=== PATIENT | female | born 1960 | race Caucasian/White ===

== ENCOUNTER 2024-01-25 17:25 | Observation (INO) ==
--- NOTE | 2024-01-25 17:30 | ED Triage Note ---
Date of Service January 25, 2024 Provider in Triage Author: Radha Tejeda History of Present Illness This patient was briefly evaluated while in triage. An abbreviated physical exam was performed. This patient is a 63-year-old Female who presents to the ED for evaluation of dizziness and tingling in her left arm. She states symptoms started around 2.5- 3.5 hours ago. She states it feels like things are spinning. Her states that he found her on the floor when he got home from work. She has been nauseous. Denies a fall. Physical Exam GENERAL: Unwell appearing, laying back in wheelchair with her eyes closed. HEENT: Pupils equal. Nystagmus noted. HEART: Regular rate and rhythm. LUNGS: Clear to auscultation. No accessory muscle use. NEURO: Alert and oriented. Initial orders for labs and / or imaging were placed and patient was placed in the waiting area until a bed is available. Please see further documentation for the full ED course.
--- NOTE | 2024-01-25 17:37 | Emergency Department Note ---
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 The patient does have nystagmus on exam. No obvious focal deficits on exam. IV blood work and CT head CT angiography of the head and neck Compazine Benadryl IV IV fluids were ordered. Upon reassessment the patient was still having symptoms of the patient was ordered Phenergan and p.o. meclizine in addition to IV fluids. The patient was noted to have 2 small aneurysms of the ICAs. I did state the patient is to like incidental and likely not the cause of the patient's symptoms. Upon subsequent reassessment the patient was feeling improved and no longer had any nystagmus. I did ask nursing to try and ambulate the patient. I did speak with on-call neurology stated the patient was feeling well enough did not feel as strongly about an MRI but if the patient still had persistent symptoms recommended inpatient treatment and MRI brain. The patient had a recurrence of her nystagmus and vertigo. I did speak to the on-call hospital service Dr. Gonzalez and MRI brain was ordered. Patient was admitted to the medicine service. Discussion w/ other healthcare providers: Dr. Gonzalez inpatient medicine service Dr. Spangler neurology Prior /Outside records reviewed: None Differential diagnosis: Benign positional vertigo, dehydration, hypovolemia, anemia, infection, hypoglycemia, electrolyte abnormalities, arrhythmia, tox among others were considered. Diagnostics, as interpreted by me: ECG: Normal sinus rhythm, rate of 72, normal intervals, normal axis T wave version lead III no ST elevations. Cardiac monitoring: An order was placed for continuous cardiac monitoring. The monitor shows a rate of 75 with sinus rhythm. Patient was placed on pulse oximetry Medical decision rules: None Imaging studies: I informally interpreted the patient's CT head does not show obvious ICH with formal report to follow. HPI: Patient presents due to concern for vertigo and the spins which began around 2:00. Patient states that it was fairly sudden. The patient denies any recent changes in elevation or underwater activities. She denies any hearing loss tinnitus or ear pain. Patient denies any neck pain but does have severe global headache. No falls or trauma the patient denies taking any blood thinning medications or aspirin. Patient did not take anything prior to arrival. The patient does feel as though her eyes are spinning. Patient was found by her on the floor but the patient denies falling but because of her spinning she laid down on the floor of the bathroom. Patient denies any chest pains or shortness of breath. She has had nausea and associated vomiting. Patient denies any history of stroke or mini stroke. Patient denies any fevers or chills no numbness tingling or focal weakness. Patient denies any slurred speech or facial droop. PAST MEDICAL HISTORY: See Below PAST SURGICAL HISTORY: See Below SOCIAL HISTORY: See Below HOME MEDICATIONS: See Below ALLERGIES: See Below VITALS: See Below PHYSICAL EXAMINATION: GENERAL: NAD, non-toxic. EYE EXAM: Normal conjunctiva. PERRL, no anisocoria and EOM's grossly intact w/o pain. Rightward beating nystagmus noted bilaterally. No obvious vertical or generational nystagmus. OROPHARYNX: Moist mucus membranes, grossly normal dentition. NECK: Trachea midline, no stridor. Supple, no nuchal rigidity, no adenopathy, non-tender. No signs of meningismus. FROM of the neck with good chin to chest and neck extension. No carotid bruits appreciated. LUNGS: Clear to auscultation. Normal chest wall mechanics. HEART: NSR, no MRG. ABDOMEN: Abdomen soft, non-tender, no masses, no rebound or guarding. BACK: No CVA TTP. SKIN: No rashes and no bruising. UPPER EXTREMITIES: Upper extremities are grossly normal. LOWER EXTREMITIES: Grossly normal, no edema. NEURO EXAM: A&O x3, cranial nerves II-XII grossly intact, normal speech, moves all 4 extremities. Good [id number], no sensory deficits. Past Med/Surg History Medical History No known health problems Surgical History S/P cataract surgery (2014) b/l Family History Mother Breast cancer, Onset Age: 41 Father Cancer Brother No problems noted. Sister No problems noted. Sister No problems noted. 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 Beliefs That Will Affect Care: None marital status: Current Living Situation: Spouse current occupational status: employed current occupation: [employer] How many Children do You have: 2 Other Information That Helps Us Care for You: No Feels Safe at Home: Yes Safety Concerns: Feels Safe At This Time Diet: regular Diet Comment: regular caffeine: Yes during the past year weight has: remained stable Dental Care, Regularly: Yes Physical Activity Frequency: Daily Seatbelt Use: always Sunscreen Use: Yes Assistive Devices: None Allergies Allergies Allergy/AdvReac Type Severity Reaction Status Date / Time No Known Allergies Allergy Unverified 01/25/24 22:54 Home Meds Home Medications Medication Instructions Recorded Confirmed multivitamin 1 tab PO DAILY 01/25/24 01/25/24 Previous Rx's Medication Instructions Recorded valacyclovir 1 gram tablet 1,000 mg PO BID PRN cold sores 3 01/14/23 days #30 tabs Results & Data (ED) Vital Signs Vital Signs - 24 hr 01/25/24 17:27 01/25/24 17:34 01/25/24 17:35 Temperature 36.6 C Temperature Source Temporal Artery Scan Pulse Rate 67 74 78 Pulse Rate [Apical] Respiratory Rate 20 27 H Respiratory Depth Normal Blood Pressure 136/82 Blood Pressure [Right Arm] Blood Pressure Mean 100 Blood Pressure Mean [Right Arm] Blood Pressure Position Sitting Pulse Oximetry 100 Oxygen Delivery Method Room Air Sepsis Recent Fever Within 48 Hours No Sepsis New/Unexplained Change in Mental Status No Sepsis Action Taken by Nursing No Action Required 01/25/24 17:37 01/25/24 17:37 01/25/24 18:00 Temperature Temperature Source Pulse Rate 81 65 Pulse Rate [Apical] Respiratory Rate 27 H 16 Respiratory Depth Blood Pressure 154/69 H Blood Pressure [Right Arm] Blood Pressure Mean 114 Blood Pressure Mean [Right Arm] Blood Pressure Position Pulse Oximetry Oxygen Delivery Method Sepsis Recent Fever Within 48 Hours Sepsis New/Unexplained Change in Mental Status Sepsis Action Taken by Nursing 01/25/24 18:15 01/25/24 18:31 01/25/24 18:31 Temperature Temperature Source Pulse Rate 78 Pulse Rate [Apical] 73 Respiratory Rate 16 16 Respiratory Depth Blood Pressure 140/82 Blood Pressure [Right Arm] 154/69 H Blood Pressure Mean 90 Blood Pressure Mean [Right Arm] 97 Blood Pressure Position Pulse Oximetry 97 Oxygen Delivery Method Room Air Sepsis Recent Fever Within 48 Hours Sepsis New/Unexplained Change in Mental Status Sepsis Action Taken by Nursing 01/25/24 19:00 01/25/24 20:00 01/25/24 21:00 Temperature Temperature Source Pulse Rate 78 86 83 Pulse Rate [Apical] Respiratory Rate 18 12 19 Respiratory Depth Blood Pressure Blood Pressure [Right Arm] Blood Pressure Mean Blood Pressure Mean [Right Arm] Blood Pressure Position Pulse Oximetry Oxygen Delivery Method Sepsis Recent Fever Within 48 Hours Sepsis New/Unexplained Change in Mental Status Sepsis Action Taken by Nursing 01/25/24 21:35 Temperature Temperature Source Pulse Rate 89 Pulse Rate [Apical] Respiratory Rate Respiratory Depth Blood Pressure Blood Pressure [Right Arm] Blood Pressure Mean Blood Pressure Mean [Right Arm] Blood Pressure Position Pulse Oximetry Oxygen Delivery Method Sepsis Recent Fever Within 48 Hours Sepsis New/Unexplained Change in Mental Status Sepsis Action Taken by [facility] Medications Current Medication List: was personally reviewed by me Laboratory Data Attestation: I reviewed the patient's lab results. 01/26/24 06:17 01/26/24 06:17 Lab Results 01/25/24 01/25/24 01/25/24 Range/Units 17:42 18:00 18:45 WBC 11.12 H (4.8-10.8) K/ul RBC 4.95 (4.20-5.40) M/uL Hgb 14.0 (12.0-16.0) g/dl POC Hgb 15.3 (12.0-16.0) g/dl Hct 41.8 (37.0-47.0) % POC Hct 45 (37-47) % MCV 84.4 (80.0-100.0) fL MCH 28.3 (25.0-34.0) pg MCHC 33.5 (32.0-36.0) g/dL RDW Std Deviation 39.5 (36.4-46.3) fL RDW Coeff of Alannah 12.9 (11.5-14.5) % Plt Count 155 (130-400) K/uL MPV 11.0 (9.4-12.4) fL Immature Gran % (Auto) 0.4 % Neut % (Auto) 86.9 % Lymph % (Auto) 8.6 % [place]pin % (Auto) 3.7 % Eos % (Auto) 0.2 % Baso % (Auto) 0.2 % Neut # (Auto) 9.66 H (1.40-6.50) K/uL Lymph # (Auto) 0.96 L (1.20-3.40) K/uL [place] # (Auto) 0.41 (0.11-0.59) K/uL Eos # (Auto) 0.02 (0.00-0.50) K/uL Baso # (Auto) 0.02 (0.00-0.20) K/uL Immature Gran # (Auto) 0.05 (0.01-0.20) K/uL PT 11.4 (9.0-12.0) Seconds INR 1.1 (0.9-1.1) APTT 27 (21-31) Seconds PTT Ratio 1.0 POC Sodium 140 (135-144) mmol/L Sodium 135 L (136-145) mmol/L POC Potassium 2.9 L (3.3-5.0) mmol/L Potassium 3.1 L (3.5-5.1) mmol/L POC Chloride 105 (101-112) mmol/L Chloride 101 (98-107) mmol/L Carbon Dioxide 23 (21-32) mmol/L POC Total CO2 23 L (24-31) mmol/L Anion Gap 11 (3-11) POC Anion Gap 16.0 (16-25) mmol/L POC BUN 22 H (7-18) mg/dl BUN 19 (6-23) mg/dl Creatinine 0.74 (0.6-1.2) mg/dl POC Creatinine 0.8 (0.6-1.3) mg/dl Est Cr Clr Drug Dosing Not Reportable Est GFR ( Amer) 99.9 ml/min Est GFR (Non-Af Amer) 86.2 ml/min BUN/Creatinine Ratio 25.7 H (10-20) Glucose 176 H (70-99(Fasting)) mg/dl POC Glucose 114 H (70-99) mg/dl POC Glucose (other) 155 H (70-99) mg/dl Calcium 8.7 (8.6-10.3) mg/dl POC Ioniz Calcium Haresh 1.04 L (1.12-1.32) mmol/l Magnesium 1.7 (1.7-2.4) mg/dl Total Bilirubin 0.5 (0.2-1.0) mg/dl AST 16 (13-39) U/L ALT 14 (7-52) U/L Alkaline Phosphatase 93 (34-104) U/L Troponin I High Sens 3.3 (0-14) pg/ml Total Protein 7.0 (6.0-8.3) gm/dl Albumin 4.3 (3.4-5.0) gm/dl Globulin 2.7 (2.5-4.0) gm/dl Albumin/Globulin Ratio 1.6 (0.9-2) Administered Medications Meclizine HCl (Meclizine Hcl 25 Mg Tab) 25 mg PO Q6 PRN PRN Reason: Dizziness or Vertigo Stop: 02/25/24 12:23 Last Admin: 01/26/24 13:23 Dose: 25 mg Documented By: TERESA Discontinued Medications Diphenhydramine HCl (Diphenhydramine 50 Mg/Ml Vial) 12.5 mg IV NOW STA Stop: 01/25/24 17:40 Last Admin: 01/25/24 18:21 Dose: 12.5 mg Documented By: BRITTA Sodium Chloride (Nss) 500 mls @ 999 mls/hr IV .Q31M ROLANDA Stop: 01/25/24 18:15 Last Infusion: 01/25/24 20:07 Dose: Infused Documented By: Admin: 01/25/24 18:21 Dose: 999 mls/hr Documented By: BRITTA Acetaminophen (Ofirmev) 1,000 mg in 100 mls @ 400 mls/hr IV NOW STA Stop: 01/25/24 18:06 Last Infusion: 01/25/24 18:35 Dose: Infused Documented By: Admin: 01/25/24 18:21 Dose: 400 mls/hr Documented By: BRITTA Sodium Chloride (Nss) 500 mls @ 999 mls/hr IV .Q31M ROLANDA Stop: 01/25/24 20:30 Last Infusion: 01/25/24 21:39 Dose: Infused Documented By: Admin: 01/25/24 20:01 Dose: 999 mls/hr Documented By: BRITTA Promethazine HCl (Phenergan) 12.5 mg in 50.5 mls @ 202 mls/hr IV NOW STA Stop: 01/25/24 20:03 Last Infusion: 01/25/24 20:21 Dose: Infused Documented By: Admin: 01/25/24 20:01 Dose: 202 mls/hr Documented By: BRITTA Magnesium Sulfate/Dextrose (Magnesium Sulfate / D5w) 1 gm in 100 mls @ 50 mls/hr IV ONE ONE Stop: 01/26/24 01:29 Last Infusion: 01/26/24 02:55 Dose: Infused Documented By: Admin: 01/26/24 00:17 Dose: 50 mls/hr Documented By: UYEN Potassium Chloride/Sodium Chloride (Normal Saline W/20 Meq Kcl) 20 meq in 1,000 mls @ 100 mls/hr IV .Q10H [facility]; Protocol Stop: 01/26/24 09:14 Last Infusion: 01/26/24 09:36 Dose: Infused Documented By: Admin: 01/26/24 00:17 Dose: 100 mls/hr Documented By: UYEN Ioversol (Optiray 320 125ml) 116 ml IV ONCE ONE Stop: 01/25/24 18:13 Last Admin: 01/25/24 18:12 Dose: 116 ml Documented By: JD Meclizine HCl (Meclizine Hcl 25 Mg Tab) 25 mg PO NOW STA Stop: 01/25/24 19:50 Last Admin: 01/25/24 20:00 Dose: 25 mg Documented By: BRITTA Ondansetron HCl (Ondansetron Inj 2 Mg/Ml 2 Ml Vial) 4 mg IV NOW STA Stop: 01/25/24 17:39 Last Admin: 01/25/24 17:40 Dose: 4 mg Documented By: BRITTA Prochlorperazine (Prochlorperazine 5 Mg/Ml 2 Ml Vial) 5 mg IV NOW STA Stop: 01/25/24 17:40 Last Admin: 01/25/24 18:21 Dose: 5 mg Documented By: BRITTA Discharge Plan Visit Data Chief Complaint: Vertigo Stated Complaint: FELL ON FLOOR, DIZZY/HEAD SPINNING, CAN'T STAND ED Provider: Tay Deleon Discharge Problem: Vertigo, 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
[2024-01-25] MEDS: ONDANSETRON INJ 2 MG/ML 2 ML VIAL IV STA (17:40)
[2024-01-25] MEDS: OPTIRAY 320 125ml IV ONE (18:12)
[2024-01-25 18:13] LABS: iSTAT Creatinine 0.8 mg/dl (0.6-1.3); iSTAT Hemoglobin 15.3 g/dl (12.0-16.0); iSTAT Ionized Calcium 1.04 mmol/l (1.12-1.32); iSTAT Potassium 2.9 mmol/L (3.3-5.0)
[2024-01-25] MEDS: PROCHLORPERAZINE 5 MG/ML 2 ML VIAL IV STA (18:21)
[2024-01-25] MEDS: diphenhydrAMINE 50 MG/ML VIAL IV STA (18:21)
[2024-01-25] MEDS: ACETAMINOPHEN 1,000 MG/100 ML VIAL IV STA (18:21)
[2024-01-25] MEDS: SODIUM CHLORIDE 0.9% 500 ML IV SCH ×2 (18:21→20:01)
--- NOTE | 2024-01-25 18:43 | CT Scan Report ---
CT angio head w con, CT angio neck with con, CT head/brain wo con CLINICAL HISTORY: 63 years-old Female with dizziness, tingling left arm. Acute strokelike symptoms COMPARISON STUDY: None TECHNIQUE: Unenhanced axial CT scan of the brain is performed. Subsequently, following the IV adminis tration of 116 cc of Optiray, CT angiogram of the head and neck was performed from the aortic arch to the skull apex. Images are reviewed in the axial, sagittal, and coronal planes. 3-D MIPS images are created and assessed. IV contrast was administered without complication. All measurements were obtain ed according to NASCET criteria. A dose lowering technique was utilized adhering to the principles of ALARA. CT DOSE: 1155.63 mGy.cm FINDINGS: CT BRAIN: There is no acute intracranial hemorrhage, midline shift, hydrocephalus, intracranial mass, territori al ischemia or abnormal extra-axial collections. Mild nonspecific white matter hypodensities may repr esent chronic microvascular ischemic disease. No abnormal intra-axial or extra-axial enhancement. Ma stoid air cells and middle ear cavities are clear. No calvarial fracture. Paranasal sinuses are clear . CT ANGIOGRAM OF THE BRAIN: Three-vessel morphology of the thoracic aortic arch. Patency of the innominate and imaged subclavian arteries. The common in the and internal carotid arteries are widely patent. 3 mm saccular aneurysm i nvolves the supraclinoid left ICA on image 83 series 5. Probable additional 3 mm saccular aneurysm wi thin the right carotid terminus on image 86 series 5. The bilateral anterior and middle cerebral jimenez jazmyn are also patent. Dominant left vertebral artery. The vertebrobasilar system and posterior cerebr al arteries are widely patent. There is no additional aneurysm, high-grade stenosis, or proximal bran ch occlusion identified. Dural sinuses appear patent. The lung apices are clear. No pneumothorax. Unremarkable soft tissues. IMPRESSION: 1. No arterial occlusion or proximal branch occlusion identified. 2. 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 No aneurysm rupture. 3. No acute intracranial abnormality. ACT 112: Negative or not required by law. The above report was generated using voice recognition software. It may contain grammatical, syntax o r spelling errors. Electronically signed by: Sidney Francois M.D. 01/25/2024 6:41 PM
[2024-01-25 19:19] LABS: INR 1.1 (0.9-1.1); Partial Thromboplastin Time 27 Seconds (21-31); Prothrombin Time 11.4 Seconds (9.0-12.0)
[2024-01-25 19:24] LABS: Alanine Aminotransferase 14 U/L (7-52); Albumin Globulin Ratio 1.6 (0.9-2); Albumin Level 4.3 gm/dl (3.4-5.0); Alkaline Phosphatase 93 U/L (34-104); Anion Gap 11 (3-11); Aspartate Aminotransferase 16 U/L (13-39); BUN Creatinine Ratio 25.7 (10-20); Bilirubin,Total 0.5 mg/dl (0.2-1.0); Blood Urea Nitrogen 19 mg/dl (6-23); Calcium 8.7 mg/dl (8.6-10.3); Carbon Dioxide 23 mmol/L (21-32); Chloride 101 mmol/L (98-107); Est GFR (African American) 99.9 ml/min; Est GFR (Non-African American) 86.2 ml/min; Globulin 2.7 gm/dl (2.5-4.0); Glucose 176 mg/dl (70-99(Fasting)); Magnesium 1.7 mg/dl (1.7-2.4); Potassium 3.1 mmol/L (3.5-5.1); Sodium 135 mmol/L (136-145)
[2024-01-25 19:26] LABS: Basophils # (auto) 0.02 K/uL (0.00-0.20); Basophils % (auto) 0.2 %; Eosinophils # (auto) 0.02 K/uL (0.00-0.50); Eosinophils % (auto) 0.2 %; Hematocrit (blood only) 41.8 % (37.0-47.0); Immature Granulocytes # (auto) 0.05 K/uL (0.01-0.20); Immature Granulocytes % (auto) 0.4 %; Lymphocytes # (auto) 0.96 K/uL (1.20-3.40); Lymphocytes % (auto) 8.6 %; Mean Corpuscular Hemoglobin 28.3 pg (25.0-34.0); Mean Corpuscular Hgb Conc 33.5 g/dL (32.0-36.0); Mean Corpuscular Volume 84.4 fL (80.0-100.0); Monocytes # (auto) 0.41 K/uL (0.11-0.59); Monocytes % (auto) 3.7 %; Neutrophils # (auto) 9.66 K/uL (1.40-6.50); Neutrophils % (auto) 86.9 %; Platelet Count 155 K/uL (130-400); RDW Coefficient of Variation 12.9 % (11.5-14.5); RDW Standard Deviation 39.5 fL (36.4-46.3); Red Blood Count 4.95 M/uL (4.20-5.40); White Blood Count 11.12 K/ul (4.8-10.8)
[2024-01-25 19:32] LABS: Troponin I High Sensitivity 3.3 pg/ml (0-14)
[2024-01-25] MEDS: MECLIZINE HCL 25 MG TAB PO STA (20:00)
[2024-01-25] MEDS: PROMETHAZINE 12.5 MG/50.5 ML BAG IV STA (20:01)
--- NOTE | 2024-01-25 23:14 | History & Physical Report ---
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 3 mm saccular aneurysm involving the right carotid terminus No aneurysm rupture MRI of brain without contrast no sign of acute or subacute infarct. There is mild periventricular presumed chronic microvascular changes, with no acute normality identified The patient received multiple medications from the ED: Zofran, Compazine, Benadryl, acetaminophen, meclizine, Phenergan without significant improvement The patient will be admitted to telemetry for serial cardiac enzymes, serial EKG's, cardiac rhythm monitoring and a 2-D echocardiogram with Dopplers. Consult to neurology Dr. Maico Spangler Hypokalemia/hypomagnesemia- Give magnesium sulfate 1 g IV NSS + KCl 20 mill equivalents at 100 mL/h Recheck laboratories in a.m. Hyperglycemia- Glucose 176 on admission labs Hemoglobin A1c Question the possibility of new onset diabetes with microinfarct as cause of nystagmus History of Present Illness Chief Complaint: The patient presents to the emergency department with complaint of the acute onset of eyes jerking persistently since mid afternoon, causing her to have intractable dizziness and vertigo Primary Care Provider: Monica Doss DO The patient is a 63-year-old female with no significant past medical history, who presents to the emergency department with the acute onset of vertigo, jerking sensation of her eyes, with headache. She denies diplopia, recent head trauma, difficulties with hearing, speech, swallowing, weakness or sensation issues in arms and legs. She has never had this type of symptoms before. She denies any recent travels or sick exposures Allergies Allergy/AdvReac Type Severity Reaction Status Date / Time No Known Allergies Allergy Unverified 01/25/24 22:54 Home Medications Medication Instructions Recorded Confirmed Type valacyclovir 1 gram tablet 1,000 mg PO BID PRN cold sores 3 01/14/23 01/25/24 Rx days #30 tabs multivitamin 1 tab PO DAILY 01/25/24 01/25/24 History Past Med/Surg History Medical History No known health problems Surgical History S/P cataract surgery (2014) b/l Family History Mother Breast cancer, Onset Age: 41 Father Cancer Brother No problems noted. Sister No problems noted. Sister No problems noted. Denies family history of Ovarian cancer Prostate cancer Myocardial infarction Colorectal cancer Social History Smoking Status: Never smoker Hx Alcohol Use: No Hx Substance Use: No Preferred Language: [place]i Communication Ability: Effective Visual Impairment: No Limitations Hearing Ability: Normal Improvement Lead Required: No Beliefs That Will Affect Care: None marital status: Current Living Situation: Spouse current occupational status: employed current occupation: Mechanical Product Design Engineer How many Children do You have: 2 Other Information That Helps Us Care for You: No Feels Safe at Home: Yes Safety Concerns: Feels Safe At This Time Diet: regular Diet Comment: regular caffeine: Yes during the past year weight has: remained stable Dental Care, Regularly: Yes Physical Activity Frequency: Daily Seatbelt Use: always Sunscreen Use: Yes Assistive Devices: Glasses Review of Systems Review of Systems: The patient denies chest pain, palpitations, shortness of breath, dyspnea on exertion, cough, lower extremity swelling, sore throat, fevers, chills, sweats, weight change, fatigue, diarrhea , constipation, abdominal pain, pelvic pain, blood in urine or stool, dysuria, urinary frequency or urgency, memory loss, loss of consciousness, rash, abnormal bruising or bleeding, focal or generalized weakness, numbness or tingling in arms or legs, generalized arthralgias or myalgias, back or neck pain, or night sweats. The review of systems is otherwise negative other than for that already noted above, and at least 10 systems have been reviewed. Physical Exam Physical Exam: The patient is awake, alert and oriented 3, well developed and well nourished, normocephalic and atraumatic, lying in bed and in no acute distress. HEENT--PERRL, EOMI, mucous membranes and oropharynx normal. Horizontal nystagmus noted in all enamorado Neck--supple. No JVD. No bruits. Thyroid normal, trachea midline, no adenopathy. Heart--normal S1 and S2. No murmurs, rubs or gallops. Lungs--clear bilaterally, no respiratory distress, no accessory muscle use. Abdomen--normal bowel sounds and soft. Nontender. Nondistended, no hernias or masses, no organomegaly. Extremities--no cyanosis or clubbing. No edema. There are good distal pulses b/l. Dermatologic--normal skin turgor, normal color, no abnormal lymph nodes, no rash. Neurologic--cranial nerves II through XII grossly intact. Horizontal nystagmus Rheumatologic--normal range of motion. Psychiatric--the anxious Results & Data Results & Data Vital Signs (Past 12 Hours) Vital Signs Temp Pulse Pulse Resp BP BP Pulse Ox 01/25/24 21:35 89 01/25/24 18:15 73 16 154/69 H 97 01/25/24 17:35 78 01/25/24 17:27 36.6 C 67 20 136/82 100 O2 Del Method 01/25/24 21:35 01/25/24 18:15 Room Air 01/25/24 17:35 01/25/24 17:27 Room Air Laboratory Results Laboratory Results WBC 11.12 K/ul (4.8-10.8) H 01/25/24 18:45 RBC 4.95 M/uL (4.20-5.40) 01/25/24 18:45 Hgb 14.0 g/dl (12.0-16.0) 01/25/24 18:45 POC Hgb 15.3 g/dl (12.0-16.0) 01/25/24 18:00 Hct 41.8 % (37.0-47.0) 01/25/24 18:45 POC Hct 45 % (37-47) 01/25/24 18:00 MCV 84.4 fL (80.0-100.0) 01/25/24 18:45 MCH 28.3 pg (25.0-34.0) 01/25/24 18:45 MCHC 33.5 g/dL (32.0-36.0) 01/25/24 18:45 RDW Std Deviation 39.5 fL (36.4-46.3) 01/25/24 18:45 RDW Coeff of Alannah 12.9 % (11.5-14.5) 01/25/24 18:45 Plt Count 155 K/uL (130-400) 01/25/24 18:45 MPV 11.0 fL (9.4-12.4) 01/25/24 18:45 Immature Gran % (Auto) 0.4 % 01/25/24 18:45 Neut % (Auto) 86.9 % 01/25/24 18:45 Lymph % (Auto) 8.6 % 01/25/24 18:45 Garland % (Auto) 3.7 % 01/25/24 18:45 Eos % (Auto) 0.2 % 01/25/24 18:45 Baso % (Auto) 0.2 % 01/25/24 18:45 Neut # (Auto) 9.66 K/uL (1.40-6.50) H 01/25/24 18:45 Lymph # (Auto) 0.96 K/uL (1.20-3.40) L 01/25/24 18:45 Garland # (Auto) 0.41 K/uL (0.11-0.59) 01/25/24 18:45 Eos # (Auto) 0.02 K/uL (0.00-0.50) 01/25/24 18:45 Baso # (Auto) 0.02 K/uL (0.00-0.20) 01/25/24 18:45 Immature Gran # (Auto) 0.05 K/uL (0.01-0.20) 01/25/24 18:45 PT 11.4 Seconds (9.0-12.0) 01/25/24 18:45 INR 1.1 (0.9-1.1) 01/25/24 18:45 APTT 27 Seconds (21-31) 01/25/24 18:45 PTT Ratio 1.0 01/25/24 18:45 POC Sodium 140 mmol/L (135-144) 01/25/24 18:00 Sodium 135 mmol/L (136-145) L 01/25/24 18:45 POC Potassium 2.9 mmol/L (3.3-5.0) L 01/25/24 18:00 Potassium 3.1 mmol/L (3.5-5.1) L 01/25/24 18:45 POC Chloride 105 mmol/L (101-112) 01/25/24 18:00 Chloride 101 mmol/L (98-107) 01/25/24 18:45 Carbon Dioxide 23 mmol/L (21-32) 01/25/24 18:45 POC Total CO2 23 mmol/L (24-31) L 01/25/24 18:00 Anion Gap 11 (3-11) 01/25/24 18:45 POC Anion Gap 16.0 mmol/L (16-25) 01/25/24 18:00 POC BUN 22 mg/dl (7-18) H 01/25/24 18:00 BUN 19 mg/dl (6-23) 01/25/24 18:45 Creatinine 0.74 mg/dl (0.6-1.2) 01/25/24 18:45 POC Creatinine 0.8 mg/dl (0.6-1.3) 01/25/24 18:00 Est Cr Clr Drug Dosing Not Reportable 01/25/24 18:45 Est GFR ( Amer) 99.9 ml/min 01/25/24 18:45 Est GFR (Non-Af Amer) 86.2 ml/min 01/25/24 18:45 BUN/Creatinine Ratio 25.7 (10-20) H 01/25/24 18:45 Glucose 176 mg/dl (70-99(Fasting)) H 01/25/24 18:45 POC Glucose 114 mg/dl (70-99) H 01/25/24 17:42 POC Glucose (other) 155 mg/dl (70-99) H 01/25/24 18:00 Calcium 8.7 mg/dl (8.6-10.3) 01/25/24 18:45 POC Ioniz Calcium Haresh 1.04 mmol/l (1.12-1.32) L 01/25/24 18:00 Magnesium 1.7 mg/dl (1.7-2.4) 01/25/24 18:45 Total Bilirubin 0.5 mg/dl (0.2-1.0) 01/25/24 18:45 AST 16 U/L (13-39) 01/25/24 18:45 ALT 14 U/L (7-52) 01/25/24 18:45 Alkaline Phosphatase 93 U/L (34-104) 01/25/24 18:45 Troponin I High Sens 3.3 pg/ml (0-14) 01/25/24 18:45 Total Protein 7.0 gm/dl (6.0-8.3) 01/25/24 18:45 Albumin 4.3 gm/dl (3.4-5.0) 01/25/24 18:45 Globulin 2.7 gm/dl (2.5-4.0) 01/25/24 18:45 Albumin/Globulin Ratio 1.6 (0.9-2) 01/25/24 18:[address] 01/25/24 17:31 CT angio head w con, CT angio neck with con, CT head/brain wo con CLINICAL HISTORY: 63 years-old Female with dizziness, tingling left arm. Acute strokelike symptoms COMPARISON STUDY: None TECHNIQUE: Unenhanced axial CT scan of the brain is performed. Subsequently, following the IV administration of 116 cc of Optiray, CT angiogram of the head and neck was performed from the aortic arch to the skull apex. Images are reviewed in the axial, sagittal, and coronal planes. 3-D MIPS images are created and assessed. IV contrast was administered without complication. All measurements were obtained according to NASCET criteria. A dose lowering technique was utilized adhering to the principles of ALARA. CT DOSE: 1155.63 mGy.cm FINDINGS: CT BRAIN: There is no acute intracranial hemorrhage, midline shift, hydrocephalus, intracranial mass, territorial ischemia or abnormal extra-axial collections. Mild nonspecific white matter hypodensities may represent chronic microvascular ischemic disease. No abnormal intra-axial or extra-axial enhancement. Mastoid air cells and middle ear cavities are clear. No calvarial fracture. Paranasal sinuses are clear. CT ANGIOGRAM OF THE BRAIN: Three-vessel morphology of the thoracic aortic arch. Patency of the innominate and imaged subclavian arteries. The common in the and internal carotid arteries are widely patent. 3 mm saccular aneurysm involves the supraclinoid left ICA on image 83 series 5. Probable additional 3 mm saccular aneurysm within the right carotid terminus on image 86 series 5. The bilateral anterior and middle cerebral arteries are also patent. Dominant left vertebral artery. The vert ebrobasilar system and posterior cerebral arteries are widely patent. There is no additional aneurysm, high-grade stenosis, or proximal branch occlusion identified. Dural sinuses appear patent. The lung apices are clear. No pneumothorax. Unremarkable soft tissues. IMPRESSION: 1. No arterial occlusion or proximal branch occlusion identified. 2. 3 mm saccular aneurysm of the supraclinoid left ICA with probable 3 mm saccular aneurysm within the right carotid terminus. No aneurysm rupture. 3. No acute intracranial abnormality. ACT 112: Negative or not required by law. The above report was generated using voice recognition software. It may contain grammatical, syntax or spelling errors. Electronically signed by: Sidney Francois M.D. 01/25/2024 6:41 PM Head CTA 01/25/24 17:31 CT angio head w con, CT angio neck with con, CT head/brain wo con CLINICAL HISTORY: 63 years-old Female with dizziness, tingling left arm. Acute strokelike symptoms COMPARISON STUDY: None TECHNIQUE: Unenhanced axial CT scan of the brain is performed. Subsequently, following the IV administration of 116 cc of Optiray, CT angiogram of the head and neck was performed from the aortic arch to the skull apex. Images are reviewed in the axial, sagittal, and coronal planes. 3-D MIPS images are created and assessed. IV contrast was administered without complication. All measurements were obtained according to NASCET criteria. A dose lowering technique was utilized adhering to the principles of ALARA. CT DOSE: 1155.63 mGy.cm FINDINGS: CT BRAIN: There is no acute intracranial hemorrhage, midline shift, hydrocephalus, intracranial mass, territorial ischemia or abnormal extra-axial collections. Mild nonspecific white matter hypodensities may represent chronic microvascular ischemic disease. No abnormal intra-axial or extra-axial enhancement. Mastoid air cells and middle ear cavities are clear. No calvarial fracture. Paranasal sinuses are clear. CT ANGIOGRAM OF THE BRAIN: Three-vessel morphology of the thoracic aortic arch. Patency of the innominate and imaged subclavian arteries. The common in the and internal carotid arteries are widely patent. 3 mm saccular aneurysm involves the supraclinoid left ICA on image 83 series 5. Probable additional 3 mm saccular aneurysm within the right carotid terminus on image 86 series 5. The bilateral anterior and middle cerebral arteries are also patent. Dominant left vertebral artery. The vertebrobasilar system and posterior cerebral arteries are widely patent. There is no additional aneurysm, high-grade stenosis, or proximal branch occlusion identified. Dural sinuses appear patent. The lung apices are clear. No pneumothorax. Unremarkable soft tissues. IMPRESSION: 1. No arterial occlusion or proximal branch occlusion identified. 2. 3 mm saccular aneurysm of the supraclinoid left ICA with probable 3 mm saccular aneurysm within the right carotid terminus. No aneurysm rupture. 3. No acute intracranial abnormality. ACT 112: Negative or not required by law. The above report was generated using voice recognition software. It may contain grammatical, syntax or spelling errors. Electronically signed by: Sidney Francois M.D. 01/25/2024 6:41 PM Neck CTA 01/25/24 17:31 CT angio head w con, CT angio neck with con, CT head/brain wo con CLINICAL HISTORY: 63 years-old Female with dizziness, tingling left arm. Acute strokelike symptoms COMPARISON STUDY: None TECHNIQUE: Unenhanced axial CT scan of the brain is performed. Subsequently, following the IV administration of 116 cc of Optiray, CT angiogram of the head and neck was performed from the aortic arch to the skull apex. Images are reviewed in the axial, sagittal, and coronal planes. 3-D MIPS images are created and assessed. IV contrast was administered without complication. All measurements were obtained according to NASCET criteria. A dose lowering technique was utilized adhering to the principles of ALARA. CT DOSE: 1155.63 mGy.cm FINDINGS: CT BRAIN: There is no acute intracranial hemorrhage, midline shift, hydrocephalus, intracranial mass, territorial ischemia or abnormal extra-axial collections. Mild nonspecific white matter hypodensities may represent chronic microvascular ischemic disease. No abnormal intra-axial or extra-axial enhancement. Mastoid air cells and middle ear cavities are clear. No calvarial fracture. Paranasal sinuses are clear. CT ANGIOGRAM OF THE BRAIN: Three-vessel morphology of the thoracic aortic arch. Patency of the innominate and imaged subclavian arteries. The common in the and internal carotid arteries are widely patent. 3 mm saccular aneurysm involves the supraclinoid left ICA on image 83 series 5. Probable additional 3 mm saccular aneurysm within the right carotid terminus on image 86 series 5. The bilateral anterior and middle cerebral arteries are also patent. Dominant left vertebral artery. The verteb robasilar system and posterior cerebral arteries are widely patent. There is no additional aneurysm, high-grade stenosis, or proximal branch occlusion identified. Dural sinuses appear patent. The lung apices are clear. No pneumothorax. Unremarkable soft tissues. IMPRESSION: 1. No arterial occlusion or proximal branch occlusion identified. 2. 3 mm saccular aneurysm of the supraclinoid left ICA with probable 3 mm saccular aneurysm within the right carotid terminus. No aneurysm rupture. 3. No acute intracranial abnormality. ACT 112: Negative or not required by law. The above report was generated using voice recognition software. It may contain grammatical, syntax or spelling errors. Electronically signed by: Sidney Francois M.D. 01/25/2024 6:41 PM Brain MRI 01/25/24 22:35 Exam(s): MRI HEAD Without Contrast EXAM: MR Head Without Intravenous Contrast CLINICAL HISTORY: vertigo. TECHNIQUE: Magnetic resonance images of the head/brain without intravenous contrast in multiple planes. COMPARISON: CTA head performed at 1808 hrs. FINDINGS: Brain: There are a few punctate areas of abnormal T2 signal in the deep cerebral white matter most consistent with mild small vessel ischemic/degenerative changes. Diffusion-weighted imaging is negative for acute or subacute infarct. No hemorrhage. No mass effect. No cortical infarct. The expected midline structures are unremarkable on sagittal T1 weighted imaging. Ventricles: Unremarkable. No ventriculomegaly. Bones/joints: Unremarkable. No acute fracture. Sinuses: Unremarkable as visualized. No acute sinusitis. Mastoid air cells: Unremarkable as visualized. No mastoid effusion. Orbits: Unremarkable as visualized. IMPRESSION: 1. No evidence of acute or subacute infarct. 2. Mild periventricular presumed chronic microvascular changes. No acute abnormality identified. 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
[2024-01-26] MEDS: MAGNESIUM SULFATE / D5W 1 GM/100 ML BAG IV ONE (00:17)
[2024-01-26] MEDS: NSS + 20MEQ KCL 20 MEQ/1,000 ML BAG IV SCH (00:17)
--- NOTE | 2024-01-26 00:33 | Magnetic Resonance Report ---
Exam(s): MRI HEAD Without Contrast EXAM: MR Head Without Intravenous Contrast CLINICAL HISTORY: vertigo. TECHNIQUE: Magnetic resonance images of the head/brain without intravenous contrast in multiple planes. COMPARISON: CTA head performed at 1808 hrs. FINDINGS: Brain: There are a few punctate areas of abnormal T2 signal in the deep cerebral white matter most consistent with mild small vessel ischemic/degenerative changes. Diffusion-weighted imaging is negative for acute or subacute infarct. No hemorrhage. No mass effect. No cortical infarct. The expected midline structures are unremarkable on sagittal T1 weighted imaging. Ventricles: Unremarkable. No ventriculomegaly. Bones/joints: Unremarkable. No acute fracture. Sinuses: Unremarkable as visualized. No acute sinusitis. Mastoid air cells: Unremarkable as visualized. No mastoid effusion. Orbits: Unremarkable as visualized. IMPRESSION: 1. No evidence of acute or subacute infarct. 2. Mild periventricular presumed chronic microvascular changes. No acute abnormality identified. Electronically signed by: Alex Diaz MD 01/26/24 00:32 AM
[2024-01-26] MEDS ORDERED: ONDANSETRON INJ 2 MG/ML 2 ML VIAL IV PRN (01:03)
[2024-01-26] MEDS ORDERED: ACETAMINOPHEN 325 MG TAB PO PRN (01:03)
--- NOTE | 2024-01-26 04:31 | Billing Data ---
Date of Service January 26, 2024 Coding Level of Care Code 73156 INT INP/OBS CARE
[2024-01-26 06:51] LABS: Basophils # (auto) 0.02 K/uL (0.00-0.20); Basophils % (auto) 0.2 %; Eosinophils # (auto) 0.01 K/uL (0.00-0.50); Eosinophils % (auto) 0.1 %; Hematocrit (blood only) 42.3 % (37.0-47.0); Hemoglobin 14.4 g/dl (12.0-16.0); Immature Granulocytes # (auto) 0.03 K/uL (0.01-0.20); Immature Granulocytes % (auto) 0.3 %; Lymphocytes # (auto) 1.54 K/uL (1.20-3.40); Lymphocytes % (auto) 13.6 %; Mean Corpuscular Hemoglobin 28.5 pg (25.0-34.0); Mean Corpuscular Volume 83.8 fL (80.0-100.0); Mean Platelet Volume 11.1 fL (9.4-12.4); Monocytes # (auto) 0.66 K/uL (0.11-0.59); Monocytes % (auto) 5.8 %; Neutrophils # (auto) 9.03 K/uL (1.40-6.50); Platelet Count 201 K/uL (130-400); RDW Coefficient of Variation 13.1 % (11.5-14.5); RDW Standard Deviation 39.5 fL (36.4-46.3); Red Blood Count 5.05 M/uL (4.20-5.40); White Blood Count 11.29 K/ul (4.8-10.8)
[2024-01-26 07:20] LABS: Estimated Average Glucose 108 mg/dl; Hemoglobin A1C 5.4 % (4.5-5.6)
[2024-01-26 08:43] LABS: Albumin Level 4.3 gm/dl (3.4-5.0); BUN Creatinine Ratio 21.4 (10-20); Calcium 8.7 mg/dl (8.6-10.3); Creatinine Clr Calc Pharmacy 89.6 ml/min; Est GFR (Non-African American) 99.2 ml/min; Magnesium 2.6 mg/dl (1.7-2.4); Phosphorus 3.1 mg/dl (2.5-4.9); Potassium 3.8 mmol/L (3.5-5.1)
--- NOTE | 2024-01-26 10:09 | Neurology Consultation ---
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 For this type of vertigo, habituation exercises may be more effective than the Jayy maneuver. Would consult physical therapy. May continue with meclizine and Zofran for symptomatic management. Another possibility here is migraine associated vertigo as she does have a history of migraine with aura and her recent headache was similar to her migraines. However, this diagnosis may be less likely than BPPV. Her presentation is not suggestive of Mnire's disease. Vestibular neuritis perhaps not excluded. The newly discovered 3 mm aneurysms of the supraclinoid left ICA and right carotid terminus are incidental findings in the context of her clinical symptoms. They will need some monitoring going forward, however. I can see her locally in clinic to follow this issue, and may also refer her for an outpatient neurosurgical opinion as well. No worrisome findings on patient's brain MRI. There is mild age-related atrophy and chronic microvascular ischemic change. She may need some additional outpatient follow-up from monitoring of cardiovascular risk factors such as hypertension, dyslipidemia. She is a non-smoker. No evidence of diabetes mellitus. I would not recommend any blood thinners in this context. Her PCP can check an up-to-date fasting lipid panel as an outpatient. In terms of her vertigo, I do expect her symptoms to be self-limited, the majority of patients will have complete resolution of symptoms. However, for BPPV related to the horizontal semicircular canal, complete resolution may take a few weeks, sometimes longer. If her symptoms fail to improve with habituation exercises, meclizine, Zofran, could consider diazepam. Please call with any questions. History of Present Illness Reason for Consultation: vertigo, nystagmus Requesting Physician: Sally Attending Physician: Gt Matias MD History of Present Illness The patient is a 63-year-old female who presented to the emergency department early yesterday evening with a chief complaint of vertigo which began around 2 PM. Onset was acute and characterized by an unpleasant spinning sensation with associated jumpy vision and nausea. Symptoms began while she was sitting on the couch at home, she crawled to the bathroom and vomited multiple times and subsequently laid on the floor which provided modest symptom relief. She was able to stand on her own, however due to aggravation of symptoms. Her found her and brought her to the emergency department. She also complains of an associated moderate headache that was gradual in onset, as well as some tinnitus for the right ear which is new today. She denies any hearing loss. She denies any recent infection or prior history of vertigo. She denies any recent exposure to significant loud noise. She denies any recent head or neck injury and denies any neck pain. Further, she denies experiencing any associated double vision, vision loss, change in speech, difficulty swallowing, or focal weakness of the arms or legs or significant sensory changes. She denies any difficulty using her hands or problems with clumsiness or coordination. Again, she has never had an episode of vertigo in the past. She does endorse a history of migraine with aura as a young adult and had previously been prescribed both Imitrex and Maxalt. She has not had a migraine, however, in many years. She does admit that her headache was somewhat similar to her migraines. She is otherwise well and has no significant chronic health issues. No known history of hypertension or diabetes, she is a non-smoker, she does have mild dyslipidemia, managing with diet. No known history of cancer or malignancy. She does not take any prescription medications. She does not drink alcohol regularly. A CTA of the head and neck of the head was negative for hemorrhage or acute process. There are 2 incidental 3 mm aneurysms, 1 of these involves the supraclinoid left internal carotid artery, the other at the right carotid terminus. A brain MRI was negative for acute or subacute stroke, no evidence of hemorrhage. There is mild chronic microvascular ischemic change. There is no hydrocephalus, no Chiari malformation. There is mild age-appropriate atrophy. I independently reviewed these images. Allergies Allergy/AdvReac Type Severity Reaction Status Date / Time No Known Allergies Allergy Unverified 01/25/24 22:54 Home Medications Medication Instructions Recorded Confirmed Type valacyclovir 1 gram tablet 1,000 mg PO BID PRN cold sores 3 01/14/23 01/25/24 Rx days #30 tabs multivitamin 1 tab PO DAILY 01/25/24 01/25/24 History Patient History Medical History No known health problems Surgical History S/P cataract surgery (2015) b/l Family History Mother Breast cancer, Onset Age: 41 Father Cancer Brother No problems noted. Sister No problems noted. Sister No problems noted. 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 Beliefs That Will Affect Care: None marital status: Current Living Situation: Spouse current occupational status: employed current occupation: [employer] How many Children do You have: 2 Other Information That Helps Us Care for You: No Feels Safe at Home: Yes Safety Concerns: Feels Safe At This Time Diet: regular Diet Comment: regular caffeine: Yes during the past year weight has: remained stable Dental Care, Regularly: Yes Physical Activity Frequency: Daily Seatbelt Use: always Sunscreen Use: Yes Assistive Devices: Glasses Review of Systems Constitutional: no fever and no chills Eyes: as per Subjective / HPI; no blind spots, no diplopia, no eye pain and no photophobia Ear, Nose, Mouth, Throat: as per Subjective / HPI and + tinnitus; no ear pain and no hearing loss Respiratory: no cough and no dyspnea Cardiovascular: no chest pain and no palpitations Gastrointestinal: as per Subjective / HPI, + nausea and + vomiting Genitourinary: no dysuria Musculoskeletal: no neck pain, no joint pain and no myalgia Integumentary: no rash and no lesions Neurologic: as per Subjective / HPI and + headache(s); no localized weakness, no loss of sensation, no lack of coordination, no tremor(s), no abnormal movements, no dizziness, no syncope, no abnormal speech, no confusion and no memory loss Psychiatric: no depression and no anxiety Hematologic / Lymphatic: no easy bleeding and no easy bruising Exam (Neuro) Constitutional: well developed and well nourished Eyes: normal visual enamorado by confrontation, PERRL, EOM intact bilaterally and + nystagmus Neurologic: Oriented to:: Person, Place and Time Memory: Short Term Intact and Remote Intact Attention: Span Intact and Concentration Intact Speech Fluency: negative Dysarthria or Dysfluency Speech Aphasia: negative Aphasia Fund of Knowledge: Current Events, Past History and Vocabulary Cranial Nerves: Normal II, III, IV, , V, VII, VIII, IX, X, XI and XII Motor Strength: Normal Lower Extremities and Normal Upper Extremities Motor Tone: Normal Lower Extremities and Normal Upper Extremities Muscle Bulk/Involuntary Movements: No Involuntary Movements; negative Muscle Atrophy Sensation: Light Touch Intact, Pain/Temperature Intact and Proprioception Intact Coordination: Normal; negative Dysdiadochokinesia, Finger-Nose Abnormal or Heel-Chance Abnormal Deep Tendon Reflexes: Rt Triceps: 2+, Lt Triceps: 2+, Rt Biceps: 2+, Lt Biceps: 2+, Rt Brachioradialis: 2+, Lt Brachioradialis: 2+, Rt Patellar: 2+, Lt Patellar: 2+, Rt Ankle: 2+ and Lt Ankle: 2+ Special Tests: negative Babinski Present Details: Patient has gaze evoked, right beating nystagmus that can be provoked with having the patient sit up, worse with leaning forward. Lying flat on her back tends to alleviate her symptoms. Gait cannot be tested, however, due to worsening symptoms with assuming upright posture. Results & Data Vital Signs (Past 12 Hours) Vital Signs Temp Pulse Pulse Resp BP Pulse Ox O2 Del Method 01/26/24 07:27 36.7 C 74 14 124/68 99 Room Air 01/26/24 07:27 78 01/26/24 02:54 36.8 C 73 17 105/63 97 Room Air 01/26/24 01:44 71 01/26/24 01:08 36.8 C 79 18 146/68 H 100 Room Air Laboratory Results WBC 11.29, hemoglobin 14.4, hematocrit 42.3, MCV 83.8, platelet count 201, sodium 140, potassium 3.8, BUN 12, creatinine 0.56, glucose 102, hemoglobin A1c 5.4, calcium 8.7, magnesium 2.6, AST 16, ALT [address] of the head, CTA of the head and neck, and brain MRI are as described in the HPI. I independently reviewed these images. An electrocardiogram reveals a normal sinus rhythm, 72 bpm. 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
[2024-01-26] MEDS: MECLIZINE HCL 25 MG TAB PO PRN (13:23)
--- NOTE | 2024-01-26 14:18 | Hospitalist Progress Note ---
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 Neurology on board. This is most likely benign positional vertigo Ordered PT Usually self-limiting Ordered meclizine Hypokalemia/hypomagnesemia- Repleted Hyperglycemia- Glucose 176 on admission labs A1c 5.4 Not a diabetic Admission and Anticipated Discharge Date Admission Date: January 25, 2024 Subjective Patient has ongoing vertigo. She is afraid to get out of bed. Review of Systems Review of Systems: All systems reviewed & are unremarkable except as noted in Subjective Physical Exam Physical Exam: General: Awake, conversant Heart: S1, S2/regular rate and rhythm, no murmur rubs or gallops Lungs: Clear to auscultation bilaterally. Normal effort Abdomen: Soft/nontender/nondistended. No hepatosplenomegaly Extremities: No clubbing/cyanosis. No edema Behavior: Appropriate, cooperative Results & Data Results & Data Vital Signs (Past 12 Hours) Vital Signs Temp Pulse Pulse Resp BP Pulse Ox O2 Del Method 01/26/24 11:27 37.0 C 77 16 158/77 H 96 Room Air 01/26/24 07:27 36.7 C 74 14 124/68 99 Room Air 01/26/24 07:27 78 01/26/24 02:54 36.8 C 73 17 105/63 97 Room Air Laboratory Results Abnormal lab results 01/25/24 01/25/24 01/25/24 Range/Units 17:42 18:00 18:45 WBC 11.12 H (4.8-10.8) K/ul Neut # (Auto) 9.66 H (1.40-6.50) K/uL Lymph # (Auto) 0.96 L (1.20-3.40) K/uL [place] # (Auto) (0.11-0.59) K/uL Sodium 135 L (136-145) mmol/L POC Potassium 2.9 L (3.3-5.0) mmol/L Potassium 3.1 L (3.5-5.1) mmol/L Chloride (98-107) mmol/L POC Total CO2 23 L (24-31) mmol/L POC BUN 22 H (7-18) mg/dl Creatinine (0.6-1.2) mg/dl BUN/Creatinine Ratio 25.7 H (10-20) Glucose 176 H (70-99(Fasting)) mg/dl POC Glucose 114 H (70-99) mg/dl POC Glucose (other) 155 H (70-99) mg/dl POC Ioniz Calcium Haresh 1.04 L (1.12-1.32) mmol/l Magnesium (1.7-2.4) mg/dl 01/26/24 Range/Units 06:17 WBC 11.29 H (4.8-10.8) K/ul Neut # (Auto) 9.03 H (1.40-6.50) K/uL Lymph # (Auto) (1.20-3.40) K/uL [place] # (Auto) 0.66 H (0.11-0.59) K/uL Sodium (136-145) mmol/L POC Potassium (3.3-5.0) mmol/L Potassium (3.5-5.1) mmol/L Chloride 109 H (98-107) mmol/L POC Total CO2 (24-31) mmol/L POC BUN (7-18) mg/dl Creatinine 0.56 L (0.6-1.2) mg/dl BUN/Creatinine Ratio 21.4 H (10-20) Glucose 102 H (70-99(Fasting)) mg/dl POC Glucose (70-99) mg/dl POC Glucose (other) (70-99) mg/dl POC Ioniz Calcium Haresh (1.12-1.32) mmol/l Magnesium 2.6 H (1.7-2.4) mg/dl PG Care Time/CCT Total # of Minutes Spent Total Time Spent with Patient: Total time spent is greater than 50% in coordination of care (as documented) at patient's floor/unit and/or counseling patient: Coding Level of Care Code 61413 SUB INP/OBS CARE 2/35MIN Diagnoses Horizontal nystagmus H55.09 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
--- NOTE | 2024-01-26 16:23 | XCELERA ---
[id number]
[2024-01-27 06:58] LABS: Basophils # (auto) 0.03 K/uL (0.00-0.20); Basophils % (auto) 0.4 %; Eosinophils # (auto) 0.06 K/uL (0.00-0.50); Eosinophils % (auto) 0.7 %; Hemoglobin 15.3 g/dl (12.0-16.0); Immature Granulocytes # (auto) 0.01 K/uL (0.01-0.20); Immature Granulocytes % (auto) 0.1 %; Lymphocytes # (auto) 1.82 K/uL (1.20-3.40); Lymphocytes % (auto) 21.7 %; Mean Corpuscular Hemoglobin 29.1 pg (25.0-34.0); Mean Corpuscular Hgb Conc 34.8 g/dL (32.0-36.0); Mean Corpuscular Volume 83.7 fL (80.0-100.0); Mean Platelet Volume 10.5 fL (9.4-12.4); Monocytes # (auto) 0.65 K/uL (0.11-0.59); Monocytes % (auto) 7.7 %; Neutrophils # (auto) 5.83 K/uL (1.40-6.50); Neutrophils % (auto) 69.4 %; Platelet Count 189 K/uL (130-400); RDW Coefficient of Variation 13.2 % (11.5-14.5); RDW Standard Deviation 40.2 fL (36.4-46.3); Red Blood Count 5.26 M/uL (4.20-5.40)
[2024-01-27 07:23] LABS: Albumin Level 4.3 gm/dl (3.4-5.0); BUN Creatinine Ratio 21.2 (10-20); Creatinine Clr Calc Pharmacy 75.9 ml/min; Magnesium 2.4 mg/dl (1.7-2.4); Phosphorus 2.1 mg/dl (2.5-4.9); Potassium 3.3 mmol/L (3.5-5.1)
--- NOTE | 2024-01-27 11:39 | Discharge Summary ---
Date of Service January 27, 2024 Admission HPI Per Admitting Provider The patient is a 63-year-old female with no significant past medical history, who presents to the emergency department with the acute onset of vertigo, jerking sensation of her eyes, with headache. She denies diplopia, recent head trauma, difficulties with hearing, speech, swallowing, weakness or sensation issues in arms and legs. She has never had this type of symptoms before. She denies any recent travels or sick exposures Admission Exam Per Admitting Provider The patient is awake, alert and oriented 3, well developed and well nourished, normocephalic and atraumatic, lying in bed and in no acute distress. HEENT--PERRL, EOMI, mucous membranes and oropharynx normal. Horizontal nystagmus noted in all enamorado Neck--supple. No JVD. No bruits. Thyroid normal, trachea midline, no adenopathy. Heart--normal S1 and S2. No murmurs, rubs or gallops. Lungs--clear bilaterally, no respiratory distress, no accessory muscle use. Abdomen--normal bowel sounds and soft. Nontender. Nondistended, no hernias or masses, no organomegaly. Extremities--no cyanosis or clubbing. No edema. There are good distal pulses b/l. Dermatologic--normal skin turgor, normal color, no abnormal lymph nodes, no rash. Neurologic--cranial nerves II through XII grossly intact. Horizontal nystagmus Rheumatologic--normal range of motion. Psychiatric--the anxious Principal Diagnosis Benign positional vertigo Ambulatory dysfunction Discharge Exam General: Awake, conversant Heart: S1, S2/regular rate and rhythm, no murmur rubs or gallops Lungs: Clear to auscultation bilaterally. Normal effort Abdomen: Soft/nontender/nondistended. No hepatosplenomegaly Extremities: No clubbing/cyanosis. 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 Neurology consulted This is most likely benign positional vertigo Patient underwent maneuvers for vertigo by physical therapy Improved significantly today. Able to ambulate safely Ordered outpatient PT Hypokalemia/hypomagnesemia- Repleted Hyperglycemia- Glucose 176 on admission labs A1c 5.4 Not a diabetic Total Time Total Time Spent Total Time Spent (In Minutes): 35 Discharge Plan Discharge Items Patient Disposition: Home - Self-Care Reason For Visit: ACUTE ONSET NYSTAGMUS Discharge Diagnosis: Benign Positional Vertigo Activity: Resume your previous activity Non-emergency contact: Primary Care Provider Call non-emergency contact if: you have any medication questions and your symptoms worsen Follow-up/Referrals: Monica Doss, [Primary Care Provider] - 02/07/24 10:20 am (with Elly Keane PA-C. ) Diet: Regular Addtl Attending Provider Instructions: Advised to follow-up with PCP in 1 week Advised to schedule appointment with outpatient PT Pending Studies at Discharge: No Stand-Alone Forms: My [facility] [employer] Medications and DC Order Prescriptions: Continued valacyclovir 1 gram tablet 1,000 mg PO BID PRN (Reason: cold sores) 3 Days Qty: 30 3RF multivitamin Tablet 1 tab PO DAILY Discharge Orders: Discharge Order (Routine); Ordered 01/27/24 Ordered By: Gt Matias Admission Data Admit Date/Time: 01/25/24 23:12 Attending Provider: Gt Matias Admit Provider: Anselmo Zavala Primary Care Provider: Monica Doss Other Providers: Anselmo Zavala; Maico Spangler Coding Level of Care Code 18475 INP/OBS DISCH >30 MIN Diagnoses Horizontal nystagmus H55.09 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
--- NOTE | 2024-01-29 19:13 | Electrocardiogram Report ---
Test Reason : Blood Pressure : / mmHG Vent. Rate : 072 BPM Atrial Rate : 072 BPM P-R Int : 188 ms QRS Dur : 080 ms QT Int : 420 ms P-R-T Axes : 018 -12 012 degrees QTc Int : 459 ms Normal sinus rhythm Nonspecific T wave abnormality Abnormal ECG No previous ECGs available Confirmed by Bharathi Mancera ([id number]) on 01/29/2024 7:13:38 PM Referred By: REFERRED SELF Confirmed By:Bharathi Mancera
== END 2024-01-27 13:16 | disposition home or self-care (01) ==
LOC: 2S 17:25 → ED 17:25 → SUATTDRO 23:12 → 2S 01-26 00:29